=== PATIENT | male | born 1950 | race Caucasian/White ===

== ENCOUNTER 2017-09-05 11:49 | Emergency (ER) | payer MEDICARE, OTHER ==
[~2017-09-05 11:49] MED LIST: BACT800T5 PO; BENZ100 PO; DOK100TA PO; ERGO50000 PO; EZET10 PO; LANTUSP SQ; LEVO.088 PO; NOVOLOGP2 SQ; OMEP20TA39 PO; PARO40TA PO; PRIN10TA PO; RISP1TAB2 PO; ROSU10 PO; ST J81CH PO; VITA-83 PO
[2017-09-05 12:20] VITALS: BP 106/67; PULSE 74; RESP 16; TEMP 97.6; O2SAT 99
--- NOTE | 2017-09-05 13:36 | RADRPT ---
EXAM DATE/TIME: 09/05/2017 13:17 [facility] COMPARISON: CHEST SINGLE AP, December 12, 2014, 2:59. INDICATIONS : Shortness of breath. MEDICAL HISTORY : Hypercholesterolemia. Hypertension Diabetes mellitus type II. Coronary artery disease SURGICAL HISTORY : Appendectomy. ENCOUNTER: Initial ACUITY: 1 day PAIN SCORE: 0/10 LOCATION: Bilateral chest FINDINGS: PA and lateral views of the chest demonstrate the lungs to be symmetrically aerated without evidence of mass, infiltrate or effusion. The cardiomediastinal contours are unremarkable. Osseous structure s are intact. CONCLUSION: No acute disease. Viktor Scales MD on September 05, 2017 at 13:33 Board Certified Radiologist. This report was verified electronically.
[2017-09-05 13:40] LABS: AUTOMATED NEUTROPHIL # 7.8 TH/MM3 (1.8-7.7); BASOPHIL # 0.1 TH/MM3 (0-0.2); BASOPHIL % 1.2 % (0.0-2.0); EOSINOPHIL # 0.2 TH/MM3 (0-0.4); EOSINOPHIL % 1.5 % (0.0-4.0); HEMATOCRIT 38.4 % (39.0-51.0); HEMOGLOBIN 13.4 GM/DL (13.0-17.0); LYMPH % 15.1 % (9.0-44.0); LYMPHOCYTE # 1.6 TH/MM3 (1.0-4.8); MEAN CELL VOLUME 94.9 FL (80.0-100.0); MEAN CORPUSCULAR HEMOGLOBIN 33.2 PG (27.0-34.0); MEAN PLATELET VOLUME 7.9 FL (7.0-11.0); MONO % 7.8 % (0.0-8.0); MONOCYTE # 0.8 TH/MM3 (0-0.9); NEUT % 74.4 % (16.0-70.0); PLATELET COUNT 154 TH/MM3 (150-450); RED BLOOD COUNT 4.05 MIL/MM3 (4.50-5.90); RED CELL DISTRIBUTION WIDTH 12.9 % (11.6-17.2); WHITE BLOOD COUNT 10.5 TH/MM3 (4.0-11.0)
--- NOTE | 2017-09-05 13:42 | PD ---
HPI Chief Complaint: Altered Mental Status Time Seen by Provider: 13:30 Travel History International Travel<30 days: No Contact w/Intl Traveler<30days: No Traveled to known affect area: No History of Present Illness HPI 66-year-old male with a history of schizophrenia presents emergency department via [facility] from a SNF after a fall that occurred just prior to arrival. Patient is slow to answer my questions however, states that he was standing when he fell. He is not sure why he fell. Patient does not think he lost consciousness and denies dizziness or headache at this time. Denies shortness of breath or chest pain. Patient states that he normally walks without assistance and his facility. He is not on a blood thinner except for daily BASA. PFSH Past Medical History Anemia: Yes Asthma: Yes Blood Disorders: Yes (ANEMIA) Bipolar Disorder: Yes Anxiety: Yes Depression: Yes Heart Rhythm Problems: No Cancer: No Cardiovascular Problems: Yes (CAD) High Cholesterol: Yes Chemotherapy: No Chest Pain: Yes Congestive Heart Failure: No COPD: No Coronary Artery Disease: Yes Diabetes: Yes Patient Takes Glucophage: No Diminished Hearing: No Endocrine: Yes Genitourinary: No Hypertension: Yes Immune Disorder: No Musculoskeletal: No Neurologic: No Psychiatric: Yes (BIPOLAR, SCHIZOPHRENIC) Reproductive: No Respiratory: Yes Radiation Therapy: No Schizophrenia: Yes Sleep Apnea: No Thyroid Disease: Yes Influenza Vaccination: Yes Past Surgical History Appendectomy: Yes Tonsillectomy: Yes Social History Alcohol Use: No Tobacco Use: No Substance Use: No Allergies-Medications (Allergen,Severity, Reaction): Coded Allergies: lovastatin (Unverified Allergy, Severe, ALLERGIC TO STATINS = ELEVATED CK ENZYMES, 09/05/17) Reported Meds & Prescriptions Reported Meds & Active Scripts Active Reported Zetia (Ezetimibe) 10 Mg Tab 10 Mg PO DAILY Vitamin C (Ascorbic Acid) 250 Mg Chew 500 Mg CHEW DAILY Tamsulosin (Tamsulosin HCl) 0.4 Mg Cap 0.4 Mg PO DAILY Risperdal (Risperidone) 0.5 Mg Tab 0.5 Mg PO HS Novolog Inj (Insulin Aspart) 1,000 Unit/10 Ml Vial 0 SQ DIRECTED Sliding Scale as directed. Lisinopril 10 Mg Tab 10 Mg PO BID Levothyroxine (Levothyroxine Sodium) 100 Mcg Tab 100 Mcg PO DAILY Lantus Inj (Insulin Glargine) 1,000 Unit/10 Ml Vial 100 Units SQ HS Glucophage XR (Metformin HCl) 500 Mg Marina 500 Mg PO DAILY With evening meal Ergocalciferol 50,000 Unit Cap 50,000 Units PO Q14D ON TH Crestor (Rosuvastatin Calcium) 10 Mg Tab 10 Mg PO DAILY Aspirin Children's (Aspirin) 81 Mg Chew 81 Mg CHEW DAILY Review of Systems Except as stated in HPI: all other systems reviewed are Neg Physical Exam Narrative GENERAL: WD, WN in NAD SKIN: Warm and dry. mid-nasal bridge with laceration vs abrasion HEAD: Normocephalic. EYES: Pupils equal and round. No scleral icterus. No injection or drainage. EOMI ENT: No nasal bleeding or discharge. Mucous membranes pink and moist. NECK: Trachea midline. No JVD. no midline tenderness. CARDIOVASCULAR: Regular rate and rhythm. RESPIRATORY: No accessory muscle use. Clear to auscultation. Breath sounds equal bilaterally. GASTROINTESTINAL: Abdomen soft, non-tender, nondistended. MUSCULOSKELETAL: Extremities without clubbing, cyanosis, or edema. No obvious deformities. NEUROLOGICAL: Awake and alert. No obvious cranial nerve deficits. Motor grossly within normal limits. Five out of 5 muscle strength in the arms and legs. Slow speech PSYCHIATRIC: Appropriate mood; talks quietly and apparently to himself, very analytical prior to answering questions Data Data Last Documented VS Vital Signs Date Time Temp Pulse Resp B/P (MAP) Pulse Ox O2 Delivery O2 Flow Rate FiO2 09/05/17 18:52 09/05/17 18:51 74 16 100 Room Air 09/05/17 12:20 97.6 Orders Orders Electrocardiogram (09/05/17 12:35) Ammonia (09/05/17 12:35) Complete Blood Count With Diff (09/05/17 12:35) Comprehensive Metabolic Panel (09/05/17 12:35) Prothrombin Time / Inr (Pt) (09/05/17 12:35) Act Partial Throm Time (Ptt) (09/05/17 12:35) Thyroid Stimulating Hormone (09/05/17 12:35) Urinalysis - C+S If Indicated (09/05/17 12:35) Chest, Pa & Lat (09/05/17 12:35) Ct Brain W/O Iv Contrast(Rout) (09/05/17 12:35) Ct Facial Bones W/O Iv Cont (09/05/17 ) Ct Cerv Spine W/O Contrast (09/05/17 ) Ed Discharge Order (09/05/17 17:46) Labs Laboratory Tests Test 09/05/17 13:30 09/05/17 17:20 White Blood Count 10.5 TH/MM3 Red Blood Count 4.05 MIL/MM3 Hemoglobin 13.4 GM/DL Hematocrit 38.4 % Mean Corpuscular Volume 94.9 FL Mean Corpuscular Hemoglobin 33.2 PG Mean Corpuscular Hemoglobin Concent 35.0 % Red Cell Distribution Width 12.9 % Platelet Count 154 TH/MM3 Mean Platelet Volume 7.9 FL Neutrophils (%) (Auto) 74.4 % Lymphocytes (%) (Auto) 15.1 % Monocytes (%) (Auto) 7.8 % Eosinophils (%) (Auto) 1.5 % Basophils (%) (Auto) 1.2 % Neutrophils # (Auto) 7.8 TH/MM3 Lymphocytes # (Auto) 1.6 TH/MM3 Monocytes # (Auto) 0.8 TH/MM3 Eosinophils # (Auto) 0.2 TH/MM3 Basophils # (Auto) 0.1 TH/MM3 CBC Comment DIFF FINAL Differential Comment Prothrombin Time 10.6 SEC Prothromb Time International Ratio 1.0 RATIO Activated Partial Thromboplast Time 27.8 SEC Blood Urea Nitrogen 20 MG/DL Creatinine 1.61 MG/DL Random Glucose 126 MG/DL Total Protein 8.1 GM/DL Albumin 3.7 GM/DL Calcium Level 9.9 MG/DL Alkaline Phosphatase 79 U/L Aspartate Amino Transf (AST/SGOT) 25 U/L Alanine Aminotransferase (ALT/SGPT) 14 U/L Total Bilirubin 0.3 MG/DL Sodium Level 137 MEQ/L Potassium Level 4.3 MEQ/L Chloride Level 103 MEQ/L Carbon Dioxide Level 24.2 MEQ/L Anion Gap 10 MEQ/L Estimat Glomerular Filtration Rate 43 ML/MIN Ammonia 17 MCMOL/L Thyroid Stimulating Hormone 3rd Gen 0.481 uIU/ML Urine Color LIGHT-YELLOW Urine Turbidity CLEAR Urine pH 5.0 Urine Specific Chandler 1.006 Urine Protein NEG mg/dL Urine Glucose (UA) NEG mg/dL Urine Ketones NEG mg/dL Urine Occult Blood MOD Urine Nitrite NEG Urine Bilirubin NEG Urine Urobilinogen LESS THAN 2.0 MG/DL Urine Leukocyte Esterase NEG Urine RBC 1 /hpf Urine WBC LESS THAN 1 /hpf Microscopic Urinalysis Comment CATH-CULT NOT IND MDM Medical Decision Making Medical Screen Exam Complete: Yes Emergency Medical Condition: Yes Differential Diagnosis Altered mental status, CVA, TIA, hypoglycemia Narrative Course 66-year-old male with a history of schizophrenia presents emergency department via [facility] from a SNF after a fall that occurred just prior to arrival. Patient is slow to answer my questions however, states that he was standing when he fell. He is not sure why he fell. Patient does not think he lost consciousness and denies dizziness or headache at this time. Denies shortness of breath or chest pain. Patient states that he normally walks without assistance and his facility. He is not on a blood thinner except for daily BASA. Vital signs negative Physical exam findings with small laceration vs abrasion to nasal bridge. no active bleeding. Rather slow to answer questions but does answer questions appropriately. Last Impressions Head CT 09/05/17 1235 Signed Impressions: Service Date/Time: Tuesday, September 05, 2017 15:13 - CONCLUSION: 1. No evidence of acute intracranial pathology. No masses are identified. Wei Barreto MD Chest X-Ray 09/05/17 1235 Signed Impressions: Service Date/Time: Tuesday, September 05, 2017 13:17 - CONCLUSION: No acute disease. Viktor Scales MD Maxillofacial CT 09/05/17 0000 Signed Impressions: Service Date/Time: Tuesday, September 05, 2017 15:13 - CONCLUSION: Normal examination. Viktor Scales MD Cervical Spine CT 09/05/17 0000 Signed Impressions: Service Date/Time: Tuesday, September 05, 2017 15:13 - CONCLUSION: No acute bony injury in the cervical spine Viktor Scales MD Laboratory Tests Test 09/05/17 13:30 09/05/17 17:20 White Blood Count 10.5 TH/MM3 Red Blood Count 4.05 MIL/MM3 Hemoglobin 13.4 GM/DL Hematocrit 38.4 % Mean Corpuscular Volume 94.9 FL Mean Corpuscular Hemoglobin 33.2 PG Mean Corpuscular Hemoglobin Concent 35.0 % Red Cell Distribution Width 12.9 % Platelet Count 154 TH/MM3 Mean Platelet Volume 7.9 FL Neutrophils (%) (Auto) 74.4 % Lymphocytes (%) (Auto) 15.1 % Monocytes (%) (Auto) 7.8 % Eosinophils (%) (Auto) 1.5 % Basophils (%) (Auto) 1.2 % Neutrophils # (Auto) 7.8 TH/MM3 Lymphocytes # (Auto) 1.6 TH/MM3 Monocytes # (Auto) 0.8 TH/MM3 Eosinophils # (Auto) 0.2 TH/MM3 Basophils # (Auto) 0.1 TH/MM3 CBC Comment DIFF FINAL Differential Comment Prothrombin Time 10.6 SEC Prothromb Time International Ratio 1.0 RATIO Activated Partial Thromboplast Time 27.8 SEC Blood Urea Nitrogen 20 MG/DL Creatinine 1.61 MG/DL Random Glucose 126 MG/DL Total Protein 8.1 GM/DL Albumin 3.7 GM/DL Calcium Level 9.9 MG/DL Alkaline Phosphatase 79 U/L Aspartate Amino Transf (AST/SGOT) 25 U/L Alanine Aminotransferase (ALT/SGPT) 14 U/L Total Bilirubin 0.3 MG/DL Sodium Level 137 MEQ/L Potassium Level 4.3 MEQ/L Chloride Level 103 MEQ/L Carbon Dioxide Level 24.2 MEQ/L Anion Gap 10 MEQ/L Estimat Glomerular Filtration Rate 43 ML/MIN Ammonia 17 MCMOL/L Thyroid Stimulating Hormone 3rd Gen 0.481 uIU/ML Urine Color LIGHT-YELLOW Urine Turbidity CLEAR Urine pH 5.0 Urine Specific Chandler 1.006 Urine Protein NEG mg/dL Urine Glucose (UA) NEG mg/dL Urine Ketones NEG mg/dL Urine Occult Blood MOD Urine Nitrite NEG Urine Bilirubin NEG Urine Urobilinogen LESS THAN 2.0 MG/DL Urine Leukocyte Esterase NEG Urine RBC 1 /hpf Urine WBC LESS THAN 1 /hpf Microscopic Urinalysis Comment CATH-CULT NOT IND There is no acute process on examination today to warrant admission or observation. He has care at his SNF and is monitored. The nurse, LETTY Nesbitt discussed with his facility at [facility]. They stated that the patient's baseline is what patient presented with today (slow to answer, schizoid-type behavior). They apparently sent him to rule out any acute process from the trauma itself. Labs and imaging studies are without obvious acute process. Patient will be discharged to his facility. Advised to monitor for signs of altered mental status or change of mentation. Patient should return to the emergency department for worsening or persistent symptoms. Recommended assistive devices for ambulation. Consider PT in the facility. Diagnosis Primary Impression: Facial contusion Qualified Codes: S00.83XA - Contusion of other part of head, initial encounter Additional Impression: Fall Referrals: Primary Care Physician Additional Instructions: Follow up with with your primary care physician within 2-3 days. Ensure safety rails and assisted devices for walking to avoid falls in the future. Disposition: 01 DISCHARGE HOME Condition: Stable Kristin Garcia Sep 05, 2017 13:42
[2017-09-05 13:50] LABS: PROTHROMBIN TIME - PATIENT 10.6 SEC (9.8-11.6)
[2017-09-05 14:01] LABS: ALBUMIN 3.7 GM/DL (3.4-5.0); AST (GOT) 25 U/L (15-37); BICARBONATE 24.2 MEQ/L (21.0-32.0); BLOOD UREA NITROGEN 20 MG/DL (7-18); CALCIUM 9.9 MG/DL (8.5-10.1); CHLORIDE 103 MEQ/L (98-107); CREATININE 1.61 MG/DL (0.60-1.30); GLOMERULAR FILTRATION RATE 43 ML/MIN (>89); GLUCOSE,RANDOM 126 MG/DL (74-106); SODIUM (NA) 137 MEQ/L (136-145)
[2017-09-05 14:02] LABS: ALT (GPT) 14 U/L (12-78)
[2017-09-05 14:12] LABS: ALKALINE PHOSPHATASE 79 U/L (45-117); TOTAL BILIRUBIN ADULT 0.3 MG/DL (0.2-1.0); TOTAL PROTEIN 8.1 GM/DL (6.4-8.2)
[2017-09-05] MEDS ORDERED: GLUCTAB PO (14:15)
[2017-09-05] MEDS ORDERED: ROSU10 PO (14:15)
[2017-09-05] MEDS ORDERED: ASPI81CH7 CHEW (14:15)
[2017-09-05] MEDS ORDERED: VITA500012 PO (14:15)
[2017-09-05] MEDS ORDERED: LANTUS2P SQ (14:25)
[2017-09-05] MEDS ORDERED: EZET10 PO (14:26)
[2017-09-05] MEDS ORDERED: RISP0.5T25 PO (14:26)
[2017-09-05] MEDS ORDERED: NOVOLOGP2 SQ (14:26)
[2017-09-05] MEDS ORDERED: TAMS0.4C4 PO (14:26)
[2017-09-05] MEDS ORDERED: LEVO100T5 PO (14:26)
[2017-09-05] MEDS ORDERED: LISI10TA3 PO (14:26)
[2017-09-05] MEDS ORDERED: VITA250C3 CHEW (14:26)
--- NOTE | 2017-09-05 15:26 | RADRPT ---
EXAM DATE/TIME: 09/05/2017 15:13 [facility] COMPARISON: CT BRAIN W/O CONTRAST, September 21, 2014, 15:06. INDICATIONS : Altered mental status and fall. RADIATION DOSE: 31.92 CTDIvol (mGy) MEDICAL HISTORY : Cardiovascular disease. Hypertension. Diabetes,Anemia SURGICAL HISTORY : None. ENCOUNTER: Initial ACUITY: 1 day PAIN SCALE: 0/10 LOCATION: cranial TECHNIQUE: Multiple contiguous axial images were obtained of the head. Using automated exposure control and adj ustment of the mA and/or kV according to patient size, radiation dose was kept as low as reasonably a chievable to obtain optimal diagnostic quality images. DICOM format image data is available electro nically for review and comparison. FINDINGS: CEREBRUM: The ventricles are normal for age. No evidence of midline shift, mass lesion, hemorrhage or acute in farction. No extra-axial fluid collections are seen. POSTERIOR FOSSA: The cerebellum and brainstem are intact. The 4th ventricle is midline. The cerebellopontine angle i s unremarkable. EXTRACRANIAL: The visualized portion of the orbits is intact. SKULL: The calvaria is intact. No evidence of skull fracture. CONCLUSION: 1. No evidence of acute intracranial pathology. No masses are identified. Wei Barreto MD on September 05, 2017 at 15:22 Board Certified Radiologist. This report was verified electronically.
--- NOTE | 2017-09-05 15:54 | RADRPT ---
EXAM DATE/TIME: 09/05/2017 15:13 [facility] COMPARISON: No previous studies available for comparison. INDICATIONS : Falls RADIATION DOSE: 20.56 CTDIvol (mGy) MEDICAL HISTORY : Cardiovascular disease. Hypertension. Diabetes,anemia SURGICAL HISTORY : None. ENCOUNTER: Initial ACUITY: 1 day PAIN SCALE: 0/10 LOCATION: neck TECHNIQUE: Volumetric scanning of the cervical spine was performed. Multiplanar reconstructions in the sagittal, coronal and oblique axial planes were performed. Using automated exposure control and adjustment o f the mA and/or kV according to patient size, radiation dose was kept as low as reasonably achievable to obtain optimal diagnostic quality images. DICOM format image data is available electronically f or review and comparison. FINDINGS: The cervical spine alignment is satisfactory. There is no evidence of cervical spine fracture. No bon y canal or foraminal compromise is noted. There mild degenerative changes with small primarily ventra l endplate osteophytes most conspicuously at C5-6 and C6-7. There is no evidence of paraspinal hemato ma. CONCLUSION: No acute bony injury in the cervical spine Viktor Scales MD on September 05, 2017 at 15:49 Board Certified Radiologist. This report was verified electronically.
--- NOTE | 2017-09-05 16:02 | RADRPT ---
EXAM DATE/TIME: 09/05/2017 15:13 [facility] COMPARISON: No previous studies available for comparison. INDICATIONS : Falls today RADIATION DOSE: 58.06 CTDIvol (mGy) MEDICAL HISTORY : Cardiovascular disease. Hypertension. Diabetes,anemia SURGICAL HISTORY : None. ENCOUNTER: Initial ACUITY: 1 day PAIN SCORE: 0/10 LOCATION: neck TECHNIQUE: Volumetric scanning of the facial bones was performed. Using automated exposure control and adjustme nt of the mA and/or kV according to patient size, radiation dose was kept as low as reasonably achiev able to obtain optimal diagnostic quality images. DICOM format image data is available electronicall y for review and comparison. FINDINGS: ORBITS: The orbital and infraorbital osseous structures are intact. The retroconal structures have a normal configuration. No radiopaque foreign bodies are seen. NASAL BONE: The nasal bone and maxillary spine are intact ZYGOMATIC ARCHES: Symmetric without evidence of fracture. SINUSES: The maxillary, ethmoid and frontal sinuses are intact. No air-fluid levels seen. NASAL CAVITY: The nasal septum is intact and midline. The lacrimal ducts are intact. SOFT TISSUES: No radiopaque foreign bodies seen. No soft-tissue swelling is seen. INTRACRANIAL: No intracranial air seen. CRIBIFORM PLATE: Grossly intact. CONCLUSION: Normal examination. Viktor Scales MD on September 05, 2017 at 15:56 Board Certified Radiologist. This report was verified electronically.
[2017-09-05 17:31] LABS: BILIRUBIN, URINE NEG (NEG); BLOOD, URINE MOD (NEG); GLUCOSE,URINE NEG (NEG); KETONE, URINE NEG (NEG); NITRITE,URINE NEG (NEG); URINE COLOR LIGHT-YELLOW (YELLW/STRAW); URINE LEUKOCYTE ESTERASE NEG (NEG)
[2017-09-05 18:51] VITALS: BP 109/56; PULSE 74; RESP 16; O2SAT 100
--- NOTE | 2017-09-05 21:49 | EKG ---
Date Performed: 09/05/2017 Time Performed: 12:48:08 PTAGE: 66 years EKG: Sinus rhythm NONSPECIFIC ST & T-WAVE ABNORMALITY BORDERLINE ECG PREVIOUS TRACING : 12/12/2014 02.50 DOCTOR: Lulu Yarbrough Interpretating Date/Time 09/05/2017 21:48:28
== END 2017-09-05 20:05 | disposition home or self-care (01) ==
LOC: NEPC 11:49
DX: S00.83XA Contusion of other part of head, initial encounter (principal); E07.9 Disorder of thyroid, unspecified; E11.9 Type 2 diabetes mellitus without complications; E78.00 Pure hypercholesterolemia, unspecified; I10 Essential (primary) hypertension; F20.9 Schizophrenia, unspecified; W19.XXXA Unspecified fall, initial encounter; Z79.4 Long term (current) use of insulin
CPT/HCPCS: 70450; 70486; 71046; 72125; 80053; 81001; 82140; 84443; 85025; 85610; 85730; 93005